=== PATIENT | female | born 1965 | race Caucasian/White ===

== ENCOUNTER → 2023-11-29 07:39 | Outpatient (REF) | payer OTHER, SELFPAY | LOC: HWWDC 07:39 | PROVIDERS: ATTENDING PHYSICIAN Family Medicine | DX: Z12.31 Encounter for screening mammogram for malignant neoplasm of breast (principal) | CPT/HCPCS: 77063; 77067 ==

== ENCOUNTER → 2023-12-25 10:40 | Outpatient (REF) | payer BC, MEDICAID, SELFPAY | LOC: RAD 10:40 | PROVIDERS: ATTENDING PHYSICIAN Nurse Practitioner | DX: J18.9 Pneumonia, unspecified organism (principal) | CPT/HCPCS: 71046 ==

== ENCOUNTER → 2024-12-31 14:21 | Outpatient (REF) | payer BC, MEDICAID, SELFPAY | LOC: HWRAD 14:21 | PROVIDERS: ATTENDING PHYSICIAN Hospitalist | DX: R22.32 Localized swelling, mass and lump, left upper limb (principal) | CPT/HCPCS: 76882 ==